=== PATIENT | female | born 1975 | race Hispanic/Latino ===

== ENCOUNTER 2020-08-12 13:13 | Outpatient (CLI) | payer BC, SELFPAY ==
--- NOTE | ~2020-08-12 | MMUS_ITS ---
EXAMINATION: MM diagnostic miguel BI w luis, US breast BI limited HISTORY: Palpable lumps in the upper outer quadrants of the breasts. TECHNIQUE: Craniocaudal, mediolateral, and mediolateral oblique 3-D tomosynthesis images of the breas ts were performed and synthetic 2-D images were generated. CAD analysis was submitted and interpreted . High resolution limited by breast ultrasound was performed. COMPARISON: 10/01/2018, 09/19/2018 BREAST PARENCHYMAL COMPOSITION: The breasts are heterogeneously dense, which may obscure small masses . FINDINGS: MAMMOGRAPHIC FINDINGS: Right breast: There are multiple obscured, low density masses in the upper outer quadrant of the bhumi st in the area of palpable concern. The largest identified mass measures 1.8 cm. No suspicious calcif ication or architectural distortion are identified. Left breast: There are multiple obscured, low density masses in the upper outer quadrant of the breas t in the area of palpable concern. The largest identified mass measures 2.4 cm. No suspicious calcifi cation or architectural distortion are identified. ULTRASOUND: Right breast: There are multiple simple cysts in the upper outer quadrant of the breast in the area o f palpable concern. The largest identified cyst measures 1.5 cm in greatest dimension. No suspicious cystic or solid mass is identified. Left breast: There are multiple simple cysts in the upper outer quadrant of the breast in the area of palpable concern. The largest identified cyst measures 2.1 cm. No suspicious cystic or solid mass is identified. IMPRESSION: 1. Multiple bilateral breast cysts accounting for the areas of palpable concern without suspicious ma mmographic or sonographic findings. Further evaluation at this time should be based on clinical asses sment. Continued follow-up physical examination is recommended. 2. Recommend routine screening mammography in one year. BI-RADS Category 2: Benign finding(s). Reviewed, dictated and finalized at location A. GRAPHICAL SURVEYOR IMPRESSION: 1. Multiple bilateral breast cysts accounting for the areas of palpable concern without suspicious mammographic or sonographic findings. Further evaluation at this time should be based on clinical assessment. Continued follow-up physical examination is recommended. 2. Recommend routine screening mammography in one year. BI-RADS Category 2: Benign finding(s).
== END 2020-08-12 13:14 | disposition home or self-care (01) ==
PROVIDERS: PCP Internal Medicine; Visit Provider Advanced Practice Midwife
DX: N63.10 Unspecified lump in the right breast, unspecified quadrant (principal)
CPT/HCPCS: 76642; 77062; 77066; G0279

== ENCOUNTER 2020-12-24 08:11 | Outpatient (CLI) | payer BC, SELFPAY ==
--- NOTE | ~2020-12-24 | US_ITS ---
US abdomen limited INDICATION: Abnormal levels of serum enzymes PROCEDURE: Realtime right upper abdominal ultrasound. COMPARISON: No prior studies for comparison. FINDINGS: The pancreas is normal without focal mass or pancreatic ductal dilation. There is fatty in filtration of the liver. There is normal directional flow in the portal vein. The gallbladder is normal without stones, gallbladder wall thickening or pericholecystic fluid. Comm on bile duct measures 4 mm. No sonographic Lake's sign. IMPRESSION: 1: Fatty infiltration of the liver. Reviewed, dictated and finalized at location A.
== END 2020-12-24 08:12 | disposition home or self-care (01) ==
LOC: ANHIMG 08:13
PROVIDERS: PCP Internal Medicine; Visit Provider Clinical Nurse Specialist
DX: R74.8 Abnormal levels of other serum enzymes (principal); K76.0 Fatty (change of) liver, not elsewhere classified
CPT/HCPCS: 76705

== ENCOUNTER 2021-01-18 14:01 | Outpatient (CLI) | payer BC, OTHER, SELFPAY ==
[2021-01-18 14:26] LABS: Basophils Percent Auto 0.4 % (0.2-1.2); Eosinophils Absolute Auto 0.1 K/mm3 (0-0.3); Eosinophils Percent Auto 1.5 % (0-4.4); Hematocrit 39.9 % (37.0-47.0); Hemoglobin 12.7 g/dL (12.0-15.0); Immature Granulocyte Absolute 0.03 K/mm3 (0.00-0.031); Immature Granulocyte Percent A 0.4 % (0-0.5); Lymphocytes Absolute Auto 2.35 K/mm3 (0.9-3.2); Lymphocytes Percent Auto 30.2 % (18.3-44.2); Mean Corpuscular HGB Conc 31.8 g/dl (32-36); Mean Corpuscular Hemoglobin 29.3 pg (26-34); Mean Corpuscular Volume 91.9 fl (80-100); Mean Platelet Volume 7.8 fl (7.4-10.4); Monocytes Absolute Auto 0.5 K/mm3 (0.1-0.6); Monocytes Percent Auto 6.9 % (2.6-8.5); Neutrophils Absolute Auto 4.7 K/mm3 (1.3-6.7); Neutrophils Percent Auto 60.6 % (45.5-73.1); Platelet Count Result 311 k/mm3 (150-375); Red Blood Count 4.34 M/mm3 (4.2-5.4); Red Cell Distribution Width 12.7 % (11.5-14.5); White Blood Count 7.8 K/mm3 (4.5-10.0)
[2021-01-18 16:31] LABS: Iron 68 ug/dL (37-170)
[2021-01-18 16:36] LABS: Alanine Aminotransferase 14 U/L (4-35); Albumin Level 4.5 g/dL (3.5-5.1); Alkaline Phosphatase 55 U/L (38-126); Anion Gap 11 mmol/L (8-16); Aspartate Amino Transferase 22 U/L (14-36); Bilirubin,Total 0.4 mg/dL (0.2-1.3); Blood Urea Nitrogen 9 mg/dL (7-17); Calcium 9.6 mg/dL (8.4-10.2); Carbon Dioxide 25 mmol/L (22-30); Chloride 103 mmol/L (98-107); Estimated Glomerular Filt Rate > 60; Glucose 89 mg/dL (65-105); Potassium 4.1 mmol/L (3.4-5.0); Sodium 139 mmol/L (137-145)
[2021-01-18 16:44] LABS: Percent Iron Saturation 19 % (20-50)
[2021-01-21 18:01] LABS: Soluble Transferrin Receptor 1.27 mg/L (0.76-1.76)
== END 2021-01-18 14:02 | disposition home or self-care (01) ==
PROVIDERS: PCP Internal Medicine; Visit Provider Internal Medicine Hematology & Oncology
DX: D50.0 Iron deficiency anemia secondary to blood loss (chronic) (principal)
CPT/HCPCS: 36415; 80053; 82607; 82728; 83540; 83550; 84238; 85025

== ENCOUNTER 2021-04-04 00:48 | Day surgery (SDC) | payer BC, SELFPAY ==
[2021-03-25 14:32] VITALS: BMI 32.3
[2021-04-04 06:18] VITALS: BMI 30.2
[2021-04-04 06:25] VITALS: BP 119/72; PULSE 87; RESP 18; TEMP 36.6; O2SAT 100
[2021-04-04] MEDS: LACTATED RINGERS 1,000 ML 150 ML IV CONT (06:31)
--- NOTE | 2021-04-04 06:44 | P.PNAN_ITS ---
Anes - Initial Pre Proc Eval Procedure: Operation Date: 04/04/21 07:30 Proposed Procedures p Esophagogastroduodenoscopy & Colonoscopy - Gerson Monge MD Date/Time: 04/04/21 06:44 Surgeon: Gerson Monge MD Pre Op Diagnosis: blood in stool, GERD Patient Data Age: 45 Gender: F Height: 1.52 m Weight: 70.2 kg Last Vital Signs Temp 36.6 C 04/04/21 06:25 Pulse 87 04/04/21 06:25 Resp 18 04/04/21 06:25 BP 119/72 04/04/21 06:25 Pulse Ox 100 04/04/21 06:25 Allergies Allergy/AdvReac Type Severity Reaction Status Date / Time No Known Allergies Allergy Verified 04/04/21 06:17 Home Medications Medication Instructions Recorded Confirmed Type cyanocobalamin (vitamin B-12) 5,000 mcg SUBLINGUAL DAILY 08/02/20 04/04/21 History [Vitamin B-12] ferrous sulfate [iron] 325 mg PO DAILY 08/02/20 04/04/21 History yrnkgmsebycl-Wh-mvjp-minerals 1 tablet PO DAILY 08/02/20 04/04/21 History [Multiple Vitamin, Womens] valacyclovir 2,000 mg PO Q12H PRN 08/02/20 04/04/21 History cholecalciferol (vitamin D3) 1,250 1,250 mcg PO WEEKLY #8 tablet 12/15/20 04/04/21 Rx mcg (50,000 unit) tablet Patient hx anesthesia problems: none Family hx anesthesia problems: none Results Review: All pre-operative results and documents have been reviewed as part of the pre-operative evaluation. [facility] Past Medical History Medical History Blood in stool GERD (gastroesophageal reflux disease) Herniated disc Herpes Microcytic anemia Surgical History Surgical History (Updated 04/04/21 @ 06:45 by Luis Fernando Nance MD) Delivery by section x3 S/P cervical spinal fusion Family History Family History Mother Diabetes mellitus Social History Social History Smoking status: Never smoker Tobacco type: cigarettes Alcohol intake: never Alcohol use details: very rarely Substance use: never Substance use type: does not use Living arrangements: with family Gender identity (if verbalized by the patient): Female Spiritual care concerns: No Anes - Eval Final PreProcedure Day of Procedure 04/04/21 06:44 Patient weight: obese Heart: regular rate and rhythm Lungs: clear to auscultation Airway: Mallampati scale class II Neurological: alert and oriented Last oral intake: >/= 8 hours ASA classification: II Emergent: no Anesthetic plan: proceed Anesthesia type and monitoring: general GIVS and standard monitoring Results Review: All pre-operative results and documents have been reviewed as part of the pre-operative evaluation. Informed Consent: The patient's anesthetic plan and its attendant risks and benefits were discussed with the patient/family/POA. Questions were solicited and answers provided to the satisfaction of the patient/family/POA.
--- NOTE | 2021-04-04 07:26 | PM.HPGS ---
History of Present Illness History of Present Illness Consent: Risks, benefits, and alternatives have been discussed and questions answered. Patient agrees to proceed with procedure. Chief complaint: blood in stool, GERD Narrative: Ginny Santana is a 45 year old female with intermittent blood in stools and also gerd Review of Systems Constitutional: Constitutional: Denies headache(s) and Denies weakness Eyes: Eyes: Denies blurry vision ENT: Reports Normal hearing present, Denies headache(s) and Denies neck pain Cardiovascular: Cardiovascular: Denies chest pain and Denies dyspnea Respiratory: Respiratory: Denies dyspnea Gastrointestinal: Gastrointestinal: Reports no additional gastrointestinal complaints Genitourinary: Genitourinary: Denies dysuria Musculoskeletal: Musculoskeletal: Denies neck pain Integumentary/Breasts: Skin/Breast: Denies dry skin Neurologic: Reports Normal hearing present, Denies headache(s) and Denies weakness Psychiatric: Psychiatric: Denies anxiety Endocrine: Endocrine: Denies change in body appearance Hematologic/Lymphatic: Hematologic/Lymphatic: Denies easy bleeding Allergic/Immunologic: Allergic/Immunologic: Denies urticaria PMFSH Past Medical History Medical History Blood in stool GERD (gastroesophageal reflux disease) Herniated disc Herpes Microcytic anemia Surgical History Surgical History (Updated 04/04/21 @ 06:45 by Luis Fernando Nance MD) Delivery by section x3 S/P cervical spinal fusion Family History Family History Mother Diabetes mellitus Social History Social History Smoking status: Never smoker Tobacco type: cigarettes Alcohol intake: never Alcohol use details: very rarely Substance use: never Substance use type: does not use Living arrangements: with family Gender identity (if verbalized by the patient): Female Spiritual care concerns: No Meds Home Medications and Allergies Home Medications Medication Instructions Recorded Confirmed Type cyanocobalamin (vitamin B-12) 5,000 mcg SUBLINGUAL DAILY 08/02/20 04/04/21 History [Vitamin B-12] ferrous sulfate [iron] 325 mg PO DAILY 08/02/20 04/04/21 History bmwwyklnzaao-An-mntp-minerals 1 tablet PO DAILY 08/02/20 04/04/21 History [Multiple Vitamin, Womens] valacyclovir 2,000 mg PO Q12H PRN 08/02/20 04/04/21 History cholecalciferol (vitamin D3) 1,250 1,250 mcg PO WEEKLY #8 tablet 12/15/20 04/04/21 Rx mcg (50,000 unit) tablet Allergies Allergy/AdvReac Type Severity Reaction Status Date / Time No Known Allergies Allergy Verified 04/04/21 06:17 Vital Signs Vital Signs - 24 hr 04/04/21 06:25 Temperature 98 F Pulse Rate 87 Respiratory Rate 18 Blood Pressure 119/72 Pulse Oximetry 100 Exam Const: General: comfortable and no acute distress HENMT: General nose exam: Normal nares present Eyes: General: appearance normal, both eyes and all related structures Neck: Neck: no JVD Resp: Auscultation: clear to auscultation bilaterally Cardio: Rate: regular rate Rhythm: regular rhythm GI: Inspection: non-distended GI Palp: Yes Soft to palpation Skin: General skin exam: normal color Neuro: General: gait normal Speech: normal speech Extrem: General: normal to inspection Psych: Mental Status: mental status grossly normal Assessment and Plan Assessment and plan (1) GERD (gastroesophageal reflux disease): Code(s): K21.9 - Gastro-esophageal reflux disease without esophagitis Status: Acute Assessment and Plan: egd (2) Blood in stool: Code(s): K92.1 - Melena Status: Acute Assessment and Plan: colonoscopy
--- NOTE | 2021-04-04 07:40 | SUR.OPER ---
EGD ended at 734. Colonoscopy started at 740.
[2021-04-04 07:55] VITALS: BP 97/68; PULSE 61; RESP 13; O2SAT 100
[2021-04-04 08:05] VITALS: BP 121/79; PULSE 71; RESP 16; O2SAT 100
[2021-04-04 08:15] VITALS: BP 106/63; PULSE 73; RESP 15; O2SAT 100
== END 2021-04-04 08:28 | disposition home or self-care (01) ==
PROVIDERS: PCP Internal Medicine; Visit Provider Internal Medicine Gastroenterology
PROC: 0DJ08ZZ Inspection of Upper Intestinal Tract, Via Natural or Artificial Opening Endoscopic (ICD-10-PCS; CPT 43235; principal; 2021-04-04 07:30)
DX: K92.1 Melena (principal); K64.8 Other hemorrhoids; K64.4 Residual hemorrhoidal skin tags; D50.0 Iron deficiency anemia secondary to blood loss (chronic); K21.9 Gastro-esophageal reflux disease without esophagitis; K29.60 Other gastritis without bleeding; D12.5 Benign neoplasm of sigmoid colon; D50.9 Iron deficiency anemia, unspecified; E66.9 Obesity, unspecified; Z68.30 Body mass index [BMI] 30.0-30.9, adult
CPT/HCPCS: 45380; 43239; 88305; 88342; J2704; J7120

== ENCOUNTER 2021-08-19 08:14 | Outpatient (CLI) | payer BC, SELFPAY ==
[2021-08-19 08:42] LABS: Basophils Percent Auto 0.4 % (0.2-1.2); Eosinophils Absolute Auto 0.1 K/mm3 (0-0.3); Eosinophils Percent Auto 1.6 % (0-4.4); Hematocrit 40.5 % (37.0-47.0); Hemoglobin 12.9 g/dL (12.0-15.0); Immature Granulocyte Absolute 0.05 K/mm3 (0.00-0.031); Immature Granulocyte Percent A 0.7 % (0-0.5); Lymphocytes Absolute Auto 2.29 K/mm3 (0.9-3.2); Lymphocytes Percent Auto 32.3 % (18.3-44.2); Mean Corpuscular HGB Conc 31.9 g/dl (32-36); Mean Corpuscular Hemoglobin 29.5 pg (26-34); Mean Corpuscular Volume 92.7 fl (80-100); Mean Platelet Volume 8.2 fl (7.4-10.4); Monocytes Absolute Auto 0.5 K/mm3 (0.1-0.6); Monocytes Percent Auto 7.6 % (2.6-8.5); Neutrophils Absolute Auto 4.1 K/mm3 (1.3-6.7); Neutrophils Percent Auto 57.4 % (45.5-73.1); Platelet Count Result 340 k/mm3 (150-375); Red Blood Count 4.37 M/mm3 (4.2-5.4); Red Cell Distribution Width 13.5 % (11.5-14.5); White Blood Count 7.1 K/mm3 (4.5-10.0)
[2021-08-19 08:53] LABS: Anion Gap 8 mmol/L (8-16); Blood Urea Nitrogen 11 mg/dL (7-17); Calcium 9.2 mg/dL (8.4-10.2); Carbon Dioxide 28 mmol/L (22-30); Chloride 102 mmol/L (98-107); Estimated Glomerular Filt Rate > 60; Glucose 114 mg/dL (65-110); Potassium 4.3 mmol/L (3.4-5.0); Sodium 138 mmol/L (137-145)
[2021-08-19 09:22] LABS: Iron 52 ug/dL (37-170)
[2021-08-19 09:32] LABS: Percent Iron Saturation 12 % (20-50)
[2021-08-19 09:58] LABS: Ferritin 7.42 ng/mL (6.24-137)
[2021-08-19 10:00] LABS: Folic Acid 13.2 ng/mL (2.76->20)
== END 2021-08-19 08:15 | disposition home or self-care (01) ==
PROVIDERS: PCP Internal Medicine; Visit Provider Internal Medicine Hematology & Oncology
DX: D50.0 Iron deficiency anemia secondary to blood loss (chronic) (principal)
CPT/HCPCS: 36415; 80048; 82607; 82728; 82746; 83540; 83550; 85025

== ENCOUNTER 2021-12-22 11:56 | Outpatient (CLI) | payer BC, SELFPAY ==
[2021-12-22 12:20] LABS: Basophils Percent Auto 0.3 % (0.2-1.2); Eosinophils Absolute Auto 0.1 K/mm3 (0-0.3); Eosinophils Percent Auto 1.6 % (0-4.4); Immature Granulocyte Absolute 0.03 K/mm3 (0.00-0.031); Immature Granulocyte Percent A 0.4 % (0-0.5); Lymphocytes Percent Auto 35.9 % (18.3-44.2); Mean Corpuscular HGB Conc 29.7 g/dl (32-36); Mean Corpuscular Hemoglobin 24.4 pg (26-34); Mean Corpuscular Volume 82.2 fl (80-100); Mean Platelet Volume 8.5 fl (7.4-10.4); Monocytes Absolute Auto 0.6 K/mm3 (0.1-0.6); Monocytes Percent Auto 9.2 % (2.6-8.5); Neutrophils Absolute Auto 3.7 K/mm3 (1.3-6.7); Neutrophils Percent Auto 52.6 % (45.5-73.1); Platelet Count Result 388 k/mm3 (150-375); Red Cell Distribution Width 16.8 % (11.5-14.5)
[2021-12-22 12:39] LABS: Anion Gap 6 mmol/L (8-16); Blood Urea Nitrogen 12 mg/dL (7-17); Calcium 8.6 mg/dL (8.4-10.2); Carbon Dioxide 25 mmol/L (22-30); Chloride 108 mmol/L (98-107); Estimated Glomerular Filt Rate > 60; Glucose 94 mg/dL (65-110); Sodium 139 mmol/L (137-145)
[2021-12-22 13:45] LABS: Folic Acid 13.4 ng/mL (2.76->20)
[2021-12-22 14:15] LABS: Ferritin 4.96 ng/mL (6.24-137)
== END 2021-12-22 11:57 | disposition home or self-care (01) ==
LOC: ANHLAB 11:58
PROVIDERS: PCP Internal Medicine; Visit Provider Internal Medicine Hematology & Oncology
DX: D50.0 Iron deficiency anemia secondary to blood loss (chronic) (principal)
CPT/HCPCS: 36415; 80048; 82607; 82728; 82746; 85025

== ENCOUNTER 2022-04-26 18:46 | Outpatient (NON) | payer BC, SELFPAY ==
[2022-04-26 19:25] LABS: Add Urine Microscopic? YES; Appearance Urine Cloudy (Clear); Bacteria Urine Trace /hpf; Bilirubin Urine Negative (Negative); Blood Urine 1+ (Negative); Color Urine Yellow (Yellow); Glucose Urine UA Negative (Negative); Ketones Urine Trace mg/dL (Negative); Leukocyte Esterase Ur Trace LEU/UL (Negative); Mucus Urine Rare /lpf; Nitrate Urine Negative (Negative); Protein Urine Negative (Negative); RBC Urine 0-2 /hpf (0-2); Specific Grav Ur 1.015 (1.001-1.035); Squamous Epithelial Cell Urine Few /hpf (Few); Urobilinogen Urine Negative mg/dL (<2.0)
== END 2022-04-26 18:47 | disposition home or self-care (01) ==
PROVIDERS: PCP Internal Medicine; Visit Provider Nurse Practitioner
DX: R30.0 Dysuria (principal)
CPT/HCPCS: 81001

== ENCOUNTER 2022-04-27 12:22 | Outpatient (CLI) | payer BC, SELFPAY ==
[2022-04-27 20:03] LABS: Basophils Percent Auto 0.6 % (0.2-1.2); Eosinophils Absolute Auto 0.1 K/mm3 (0-0.3); Eosinophils Percent Auto 2.1 % (0-4.4); Hematocrit 37.1 % (37.0-47.0); Hemoglobin 11.3 g/dL (12.0-15.0); Immature Granulocyte Absolute 0.02 K/mm3 (0.00-0.031); Immature Granulocyte Percent A 0.3 % (0-0.5); Lymphocytes Absolute Auto 2.01 K/mm3 (0.9-3.2); Lymphocytes Percent Auto 30.8 % (18.3-44.2); Mean Corpuscular HGB Conc 30.5 g/dl (32-36); Mean Corpuscular Hemoglobin 23.7 pg (26-34); Mean Corpuscular Volume 77.9 fl (80-100); Mean Platelet Volume 8.9 fl (7.4-10.4); Monocytes Absolute Auto 0.7 K/mm3 (0.1-0.6); Neutrophils Absolute Auto 3.7 K/mm3 (1.3-6.7); Neutrophils Percent Auto 56.2 % (45.5-73.1); Platelet Count Result 440 k/mm3 (150-375); Red Blood Count 4.76 M/mm3 (4.2-5.4); Red Cell Distribution Width 17.1 % (11.5-14.5); White Blood Count 6.5 K/mm3 (4.5-10.0)
[2022-04-27 20:45] LABS: Alanine Aminotransferase 15 U/L (6-35); Albumin Level 4.7 g/dL (3.5-5.1); Alkaline Phosphatase 49 U/L (38-126); Anion Gap 15 mmol/L (8-16); Aspartate Amino Transferase 24 U/L (14-36); Bilirubin,Total 0.2 mg/dL (0.2-1.3); Blood Urea Nitrogen 15 mg/dL (7-17); Calcium 9.5 mg/dL (8.4-10.2); Carbon Dioxide 25 mmol/L (22-30); Chloride 103 mmol/L (98-107); Estimated Glomerular Filt Rate > 60; Glucose 120 mg/dL (65-110); Sodium 143 mmol/L (137-145)
== END 2022-04-27 12:23 | disposition home or self-care (01) ==
LOC: ANHGOSHLAB 12:25
PROVIDERS: PCP Internal Medicine; Visit Provider Nurse Practitioner
DX: R42 Dizziness and giddiness (principal)
CPT/HCPCS: 36415; 80053; 84443; 85025

== ENCOUNTER 2024-07-22 12:09 | Outpatient (CLI) | payer OTHER, BC, SELFPAY ==
[2024-07-22 12:55] LABS: Basophils Percent Auto 0.3 % (0.2-1.2); Eosinophils Absolute Auto 0.2 K/mm3 (0-0.3); Eosinophils Percent Auto 3.1 % (0-4.4); Hematocrit 38.5 % (37.0-47.0); Hemoglobin 12.3 g/dL (12.0-15.0); Immature Granulocyte Absolute 0.03 K/mm3 (0.00-0.031); Immature Granulocyte Percent A 0.4 % (0-0.5); Lymphocytes Percent Auto 26.8 % (18.3-44.2); Mean Corpuscular HGB Conc 31.9 g/dl (32-36); Mean Corpuscular Hemoglobin 29.5 pg (26-34); Mean Corpuscular Volume 92.3 fl (80-100); Mean Platelet Volume 8.7 fl (7.4-10.4); Monocytes Absolute Auto 0.6 K/mm3 (0.1-0.6); Monocytes Percent Auto 8.3 % (2.6-8.5); Neutrophils Absolute Auto 4.3 K/mm3 (1.3-6.7); Neutrophils Percent Auto 61.1 % (45.5-73.1); Platelet Count Result 292 k/mm3 (150-375); Red Blood Count 4.17 M/mm3 (4.2-5.4); Red Cell Distribution Width 12.5 % (11.5-14.5); White Blood Count 7.1 K/mm3 (4.5-10.0)
[2024-07-22 13:12] LABS: Alanine Aminotransferase 8 U/L (6-35); Albumin Level 4.2 g/dL (3.5-5.1); Alkaline Phosphatase 43 U/L (38-126); Anion Gap 6 mmol/L (4-12); Aspartate Amino Transferase 17 U/L (14-36); Bilirubin,Total 0.4 mg/dL (0.2-1.3); Blood Urea Nitrogen 12 mg/dL (7-17); Calcium 8.7 mg/dL (8.4-10.2); Carbon Dioxide 27 mmol/L (22-30); Chloride 104 mmol/L (98-107); Cholesterol 185 mg/dL (0-200); Estimated Glomerular Filt Rate > 60; Glucose 94 mg/dL (65-110); HDL Direct 64 mg/dL; Potassium 4.3 mmol/L (3.4-5.0); Sodium 137 mmol/L (137-145); Triglycerides 71 mg/dL (<150)
[2024-07-22 13:23] LABS: LDL Cholesterol Direct 95 mg/dL
[2024-07-22 13:45] LABS: Thyroid Stimulating Hormone 0.727 uIU/mL (0.465-4.680)
== END 2024-07-22 12:10 | disposition home or self-care (01) ==
LOC: ANHLAB 12:14
PROVIDERS: PCP Internal Medicine; Visit Provider Nurse Practitioner
DX: D64.9 Anemia, unspecified (principal); E55.9 Vitamin D deficiency, unspecified; K76.0 Fatty (change of) liver, not elsewhere classified
CPT/HCPCS: 36415; 80053; 80061; 82306; 84443; 85025

== ENCOUNTER 2025-06-07 19:36 | Emergency (ER) | payer BC, SELFPAY ==
--- NOTE | ~2025-06-07 | CT_ITS ---
CT abdomen pelvis w con Clinical History: abd pain, nausea, hematuria . Comparison: None Technique: Axial images lung bases to symphysis pubis 100 mL Omnipaque 350 Coronal, sagittal reformats CT images acquired with automatic exposure control for dose reduction DLP: 497 mGy-cm Findings: Lung bases: Clear. Visualized heart and pericardium: Unremarkable. Liver: Enlarged. Steatosis. Gallbladder: Unremarkable. Spleen: Unremarkable. Pancreas: Unremarkable. Adrenal glands: Unremarkable. Kidneys: Right kidney- No hydronephrosis. No renal stones. Left kidney- No hydronephrosis. No renal stones. Tiny probable cyst. Distal esophagus/stomach: Small hiatal hernia. Small bowel loops: Normal caliber and wall thickness. Air-fluid levels. Colon: Apparent distal wall thickening but under distended. Normal RLQ appendix. Nodes: No enlarged nodes. Peritoneum: No ascites. No free air. Urinary bladder: Unremarkable. Uterus: Unremarkable. Adnexa: No masses. Bones: No acute bony abnormality. Soft tissues: Small umbilical hernia with fat. Aorta: No aneurysm or dissection. IVC: Unremarkable. Main portal vein/SMV/splenic vein: Patent. IMPRESSION: 1. Mild enterocolitis possible. 2. Otherwise no acute abnormality. Reviewed, dictated and finalized at location [facility]
[2025-06-07 19:38] VITALS: BP 123/76; PULSE 99; RESP 16; TEMP 37.1; O2SAT 100
--- OUTSIDE RECORDS SUMMARY | 2025-06-07 19:39 | XMS_ITS | Clinical Summary ---
Author Organization [facility] Address [address] [place] [address] Phone Care Team Providers Care Blueprinter Name Role Phone Provider, Unknown Primary Care Provider Unavaila ble Social History Tobacco Use Types Packs/Day Years Used Date Smoking Tobacco: Never Assessed Comments Unknown Sex and Gender Information Value Date Recorded Sex Assigned at Not on file Legal Sex Female 10:14 PM CDT Gender Identity Not on file Sexual Orientation Not on file Plan of Treatment Not on file Care Teams Blueprinter Relationship Specialty Start Date End Date Provider, Unknown UNKNOWN PCP - General 12/25/16
--- OUTSIDE RECORDS SUMMARY | 2025-06-07 19:39 | XMS_ITS | Clinical Summary ---
Author Organization [facility] Address [address] [place] [address] [place] [address] Care Team Providers Care Director Safety Name Role Phone Rebekah Lindsay [facility] Primary Care Provide r Allergies No known active allergies Medications cholecalciferol 1,250 mcg (50,000 unit) Capsule 1 Active traMADoL (ULTRAM) 50 mg tablet tramadol 50 mg tablet take 1 tablet by oral route every 6 hours as needed Active valACYclovir (VALTREX) 500 mg tablet valacyclovir 500 mg tablet Active cyanocobalamin (VITAMIN B-12) 100 mcg tablet Take 100 mcg by mouth daily. Active ferrous sulfate 325 mg (65 mg iron) tablet Take 325 mg by mouth daily. Active sertraline (ZOLOFT) 25 mg tablet Take 25 mg by mouth daily. 2 Active doxepin (SINEquan) 10 mg capsule TAKE 1 CAPSULE BY MOUTH EVERY NIGHT AT BEDTIME 2 Active Active Problems Problem Noted Date Diagnosed Date Iron deficiency anemia 01/18/2021 Family History Medical History Relation Name Comments Kidney Disease Brother 1 Prostate Cancer Father Diabetes Mother Cervical Cancer Sister 1 Anemia Sister 2 Relation Name Status Comments Brother 1 Brother 2 Alive Brother 3 Alive Brother 4 Alive Brother 5 Alive Daughter 1 Alive Daughter 2 Alive Father Alive Mother Sister 1 Alive Sister 2 Alive Sister 3 Alive Son Alive Social History Tobacco Use Types Packs/Day Years Used Date Smoking Tobacco: Never Smokeless Tobacco: Never Alcohol Use Standard Drinks/Week Comments Not Currently 0 (1 standard drink = 0.6 oz pur e alcohol) Comments Unknown Sex and Gender Information Value Date Recorded Sex Assigned at Not on file Legal Sex Female 1:15 PM CDT Gender Identity Not on file Sexual Orientation Not on file Last Filed Vital Signs Vital Sign Reading Time Taken Comments Blood Pressure 118/76 08/25/2021 10:36 AM [employer]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 Pulse 75 08/25/2021 10:36 AM [employer]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 Temperature 36.5 C (97.7 F) 08/25/2021 10:36 AM [employer]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 Respiratory Rate - - Oxygen Saturation 98% 08/25/2021 10:36 AM CA[employer]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 Inhaled Oxygen Concentration - - Weight 71.2 kg (157 lb) 08/25/2021 10:36 AM CA[employer]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 Height 152.4 cm (5') 08/25/2021 10:36 AM CA[employer]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 Body Mass Index 30.66 08/25/2021 10:36 AM CA[employer]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 Plan of Treatment Health Maintenance Due Date Last Done Comments DTAP/TDAP/TD VACCINES (1 - Tdap) 10/27/1995 HEPATITIS B VACCINES (1 of 3 - 19+ 3-dose series) 10/08 HPV/Cotest (21-29) 1997 CERVICAL CANCER SCREENING 2006 HPV/Cotest (30-65) 2006 PAP SMEAR 2006 BREAST CANCER SCREENING 2016 COLORECTAL SCREENING 2021 Colorectal Cancer Screening 2021 FIT-DNA Q 3 years 2021 FIT/FOBT Q 1 year 2021 Flex Sig/CT Colonography Q 5 years 2021 INFLUENZA VACCINE (#1) 2025 Insurance [employer] ACCESS CHOICE Care Teams Director Safety Relationship Specialty Start Date End Date Senci, Rebekah Karen, [employer] [address] [place] [address] PCP - General Clinical Nurse Specialist 01/18/21
--- OUTSIDE RECORDS SUMMARY | 2025-06-07 19:39 | XMS_ITS | Clinical Summary ---
Author Organization [facility] Address [address] [place] [address] Care Team Providers Care User Support Analyst Name Role Phone Unavailable Primary Care Provider Unavailabl e Source Comments [facility],non-owned Affiliates and Associated Physician Practices is amultiple site organization consisting of ambulatory clinics and hospital sitesin [place], [place], [place] and [place]. This disclosure is being madepursuant to the Care Everywhere program and may not contain all information available regarding this patient. Last updated 18.[facility] [employer] Social History Tobacco Use Types Packs/Day Years Used Date Smoking Tobacco: Never Assessed Comments Unknown Sex and Gender Information Value Date Recorded Sex Assigned at Not on file Legal Sex Female 8:55 AM CDT Gender Identity Not on file Sexual Orientation Not on file Plan of Treatment Health Maintenance Due Date Last Done Comments COLOGUARD (AGES 45-75) - COL ON CA SCREENING 1976 COLON MONITORING 1976 COLONOSCOPY - COLON CA SCREENING 1976 CT COLONOGRAPHY - COLON CA SCREENING 1976 Colorectal Cancer Screening 1976 FIT - COLON CA SCREENING 1976 FLEX SIG - COLON CA SCREENING 1976 LIPID TESTING 1976 MAMMOGRAM 1976 HIV SCREENING 10/27/1991 HEPATITIS C SCREENING 10/22/1994 DTAP/TDAP/TD VACCINES (1 - Tdap) 10/27/1995 HEPATITIS B VACCINE (1 of 3 - 19+ 3-dose series) 10/27/1995 PAP SMEAR 1997 Cervical Cancer Screening 2006 PAP with HPV 2006 DEPRESSION SCREENING 07/09/2024 COVID-19 VACCINE ( - 2024-2 6 season) 2025 INFLUENZA VACCINE (#1) 2025 ZOSTER VACCINE (1 of 2) 2026 HIB VACCINE Aged Out No longer eligi ble based on patient's age to complete this topic HPV VACCINE Aged Out No longer eligi ble based on patient's age to complete this topic MENINGOCOCCAL (Group B) VACC INE SHARED DECISION-MAKING Aged Out No longer eligibl e based on patient's age to complete this topic MENINGOCOCCAL GROUPS A/C/Y/W VACCINE Aged Out No longer eligible b ased on patient's age to complete this topic PNEUMOCOCCAL VACCINE Aged Out No long er eligible based on patient's age to complete this topic Insurance ANTHEM
--- OUTSIDE RECORDS SUMMARY | 2025-06-07 19:39 | XMS_ITS | Data Portability ---
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 Patient will come back in a year unless there are new symptoms. [email or web address] Not available 12/26/2022 14:13:23 Plan of Treatment Reminders Order Date Submit Date Provider Last Modified By Organization Details Last Modified Time Details Appointments None recorded . Lab urinalys is, dipstick 2022 023 [email or web address] [place], [address], [place], [address], 15:39:51 urinalys is, dipstick 2022 023 [email or web address] [address], [address], [place], [address], 3 12:25:01 hbcab (hepatit is B core Ab) igm, serum 2022 023 [facility] (Lab), [address], [place], [address], 3 19:33:56 HBsAg (hepatit is B surface Ag), serum 2022 023 [facility] (Lab), [address], [place], [address], 3 19:33:52 hepatiti s C virus Ab, serum 2022 023 [facility] (Lab), [address], [place], [address], 3 19:33:55 unlisted lab - HIV 1/2 antigen/ antibody , reflex confirma tion 2022 023 [facility] (Lab), [address], [place], [address], 3 19:33:52 RPR (rapid plasma reagin), serum 2022 023 [facility] (Lab), [address], [place], [address], 3 19:33:56 dhea-sul fate, serum 2022 023 [facility] (Lab), [address], [place], [address], 3 19:33:56 hormone panel, serum or plasma 2022 023 [facility] (Lab), [address], [place], [address], 3 19:33:55 progeste karlos, serum 2022 023 [facility] (Lab), [address], [place], [address], 3 19:33:53 prolacti n, serum 2022 023 [facility] (Lab), [address], [place], [address], 3 19:33:54 shbg (sex hormone- binding globulin ), serum 2022 023 [facility] (Lab), [address], [place], [address], 3 19:33:54 TSH, serum or plasma 2022 023 [facility] (Lab), [address], [place], [address], 3 19:33:53 testoste karlos free/ulysses tosteron e total, ratio, serum 2022 023 [facility] (Lab), [address], [place], [address], 3 19:33:57 pregnanc y test, urine [address] [facility], [address], [address], [place], [address], 3 16:01:27 Referral None recorded . Procedures None recorded . Surgeries None recorded . Imaging MAMMO, screenin g, digital, bilatera l 2022 023 [facility], [address], [address], [place], [address], 3 15:51:39 US, pelvis, complete 2022 023 [facility], [address], [address], [place], [address], 3 15:51:39 Medication Orders fluconaz ole 150 mg tablet 2022 023 [id number], [address], [place], [id number], 3 15:50:46 nystatin -triamci nolone 100,000 unit/gra m-0.1 % topical ointment 2022 023 [facility], [address], [place], [id number], 15:50:46 nystatin -triamci nolone 100,000 unit/gra m-0.1 % topical ointment 2022 023 [facility] #63191, [address], [place], [id number], 12:41:09 fluconaz ole 150 mg tablet 2022 023 [facility] #61117, [address], [place], [id number], 12:40:26 fluconaz ole 150 mg tablet 2022 023 [email or web address] [facility] #92616, [address] [place], [id number], 3 14:14:14 nystatin -triamci nolone 100,000 unit/gra m-0.1 % topical ointment 2022 023 [email or web address] [facility] #89212, [address] [place], [id number], 3 14:14:27 Valtrex 500 mg tablet 2021 022 [facility] #[id number], [address] [place], [id number], 2 10:58:25 Patient TargetsNo targets recorded. Patient InstructionsNo instructions recorded. Reason for Referral None Reported. Results Created Date Observation Date Name Description Value Unit Range Abnormal Flag Note LastModifiedBy Organization Detail LastModifiedTime 11/10/19 23 11/09/2022 CT/GC AND TRICH OMONA S VAGIN TIMOTHY (RRNA ), SWAB chlamydia trachomatis, PCR Negati ve negati ve Not Available [facility] (Lab) [address], [place], [address], 11/10/2022 15:32:42 11/10/19 23 11/09/2022 CT/GC AND TRICH OMONA S VAGIN TIMOTHY (RRNA ), SWAB neisseria gonorrhoeae, PCR Negati ve negati ve Not Available [facility] (Lab) [address], [place], [address], 11/10/2022 15:32:42 11/10/19 23 11/09/2022 CT/GC AND TRICH OMONA S VAGIN TIMOTHY (RRNA ), SWAB trichomonas vaginalis ribosomal RNA (rrna) Negati ve negati ve Not Available [facility] (Lab) [address], [place], [address], 11/10/2022 15:32:42 11/10/19 23 11/09/2022 VAGIN ITIS/ VAGIN OSIS, DNA PROBE reji sp. detection, direct probe Negati ve negati ve Not Available [facility] (Lab) [address], [place], [address], 11/10/2022 15:32:43 11/10/19 23 11/09/2022 VAGIN ITIS/ VAGIN OSIS, DNA PROBE gardnerella vag. detection, direct probe Positi ve negati ve abnormal Not Available [facility] (Lab) [address], [place], [address], 11/10/2022 15:32:43 11/10/19 23 11/09/2022 VAGIN ITIS/ VAGIN OSIS, DNA PROBE trichomonas vag. detection, direct probe Negati ve negati ve Not Available [facility] (Lab) [address] [place], [address], 11/10/2022 15:32:43 12/27/19 23 12/26/2022 IMAGE GUIDE D PAP AND HPV REGAR DLESS image guided Pap, HPV regardless of Pap result SEE RESULT S BELOW CASE REPOR T: Cytol ogy Gynec ologi jennie Repor t Case: [id number] Autho jayant sol Provi parag: Parris Fam, ALLI Ramirez cted: 12/26 1759 Order ing Locat ion: [place] [facility] Recei kinjal: 12/27 0619 First Scree n: Manuela govea, Ceci ed, CT Rescr een: Strgeorge mosher, Jerry am, CT Speci men: Scree kalia Pap - Image d, Cervi x STATE MENT OF ADEQU ACY: Satis facto ry for evalu ation Trans forma tion zone compo nent absen t The absen ce of an endoc ervic al compo nent was confi rmed by an addit ional catherine ner. FINAL DIAGN OSIS: Negat serina for Intra epith elial Bere hay or Jason macedo (NIL) . Elect esvin villa solo d by Sammy mosher, Jerry lam, CT on 2022 at 10:09 AM ----- ----- ----- ----- ----- ----- ----- ----- ----- ----- ----- ----- ----- ----- ----- ----- ----- ---- HPV RESUL TS: HPV mRNA E6/E7 : No HPV mRNA Detec veronique NOTE: This high risk HPV mRNA assay detec ts fourt een high- risk HPV types (16, 18, 31, 33, 35, 39, 45, 51, 52, 56, 58, 59, 66, 68) witho ut diffe renti ation . COMME NT: This speci men was revie wed by a Cytot echno logis t and/o r Patho logis t (as indic ated in this repor t) after evalu ation using the Thinp rep Imagi ng Syste m. CLINI JENNIE INFOR MATIO N: Menst rual Statu s: LMP (if appli cable ): Clini jennie Histo ry/Pr eviou s Pap: Type of Neopl kailey (if appli cable ): Signi fican t Clini jennie Findi ngs: Other Histo ry: Hormo aaliyah (if appli cable ): PAP EDUCA ERICKA L NOTE: The Pap Test is a scree kalia test with an inher ent false negat serina rate. Liqui d-bas ed sampl ing may decre ase, but will not elimi mary, false negat serina resul ts. A negat serina resul t does not precl ude the prese nce and/o r devel opmen t of disea se, since the prese nce of abnor mal cells in the sampl e depen ds on the locat ion of the lesio n and sampl ing techn ique. Viktoria nued regul ar scree kalia is the best metho d of cance r preve ntion . If repor veronique cytol ogic findi ng do not corre late with physi jennie and/o r histo rical findi ngs, furth er inves tigat ion is recom emmanuel d, as clini joao warra nted. Not Available [facility] (Lab) [address], [place], [address], 12/29/2022 11:13:14 12/27/19 23 12/26/2022 HEPAT ITIS B SURFA CE ANTIG EN hepatitis B surface antigen Non-re active non-re active This assay was perfo rmed using [employer] ratio n reage nts and test kits. Value s obtai shawanda with other assay metho ds or kits canno t be used inter contreras eably . Not Available [facility] (Lab) [address], [place], [address], 01/04/2023 19:33:52 12/27/1912/26/2022 HIV 1/2 ANTIG EN/AN TIBOD Y, REFLE X CONFI RMATI ON HIV antigen/anti body Nonrea ctive nonrea ctive HIV-1 antig en and HIV-1 /HIV- 2 antib odies were not detec veronique. No labor atory evide nce of HIV infec tion. Not Available [facility] (Lab) [address], [place], [address], 01/04/2023 19:33:52 12/27/19 23 12/26/2022 TSH, REFLE X FREE T4 TSH 0.97 uIU/m L 0.30-5 .33 Not Available [facility] (Lab) [address], [place], [address], 01/04/2023 19:33:53 12/27/19 23 12/26/2022 PROGE STERO NE progesterone 0.19 NG/mL This assay was perfo rmed using [employer] ratio n reage nts and test kits. Value s obtai shawanda with other assay metho ds or kits canno t be used inter [facility] . Femal e Proge stero ne Range s: Folli cular phase 0.06- 0.89 ng/mL Ovula tion phase 0.12- 12.00 ng/mL Lutea l phase 1.83- 23.90 ng/mL Postm enopa usal< 0.05- 0.13 ng/mL Healt hy Pregn ant Women 1st Trime ster1 1.0-4 4.30 2nd Trime ster2 5.40- 83.30 3rd Trime ster5 8.70- 214.0 0 Not Available [facility] (Lab) [address], [place], [address], 01/04/2023 19:33:53 12/27/19 23 12/26/2022 PROLA CTIN prolactin, total 8.50 NG/mL 4.79-2 3.30 This assay was perfo rmed using [employer] ratio n reage nts and test kits. Value s obtai shawanda with other assay metho ds or kits canno t be used inter [facility] . Not Available [facility] (Lab) [address], [place], [address], 01/04/2023 19:33:54 12/27/19 23 12/26/2022 HUMAN SEX HORMO NE EULALIO NG LENU SHAWNA sex hormone binding globulin 44.3 nmole s/L 16.8-1 25.2 Not Available [facility] (Lab) [address] [place], [address], 01/04/2023 19:33:54 12/27/19 23 12/26/2022 FSH, LH, ESTRA DIOL estradiol 11.4 pg/mL This assay was perfo rmed using [employer] reage nts and test kits. Value s obtai shawanda with other assay metho ds or kits canno t be used inter [facility] . Femal e Estra diol Range s: Folli cular phase 12.4- 233 pg/mL Ovula tion phase 41.0- 398 pg/mL Lutea l phase 22.3- 341 pg/mL Postm enopa usal< 5-138 pg/mL Healt hy Pregn ant Women 1st Trime ster1 54-32 43 pg/mL 2nd Trime ster1 561-2 1280 pg/mL 3rd Trime ster8 525-> 56979 pg/mL Not Available [facility] (Lab) [address], [place], [address], 01/04/2023 19:33:55 12/27/19 23 12/26/2022 FSH, LH, ESTRA DIOL FSH 38.1 mIU/m L This assay was perfo rmed using [employer] n reage nts and test kits. Value s obtai shawanda with other assay metho ds or kits canno t be used inter [facility] . Femal es Folli cular : 3.5-1 2.5 mIU/m L Ovula tion: 4.7-2 1.5 mIU/m L Lutea l: 1.7-7 .7 mIU/m L Postm enopa use: 25.8- 134.8 mIU/m L Not Available [facility] (Lab) [address] [place], [address], 01/04/2023 19:33:55 12/27/1912/26/2022 FSH, LH, ESTRA DIOL LH 23.2 mIU/m L This assay was perfo rmed using [employer] reage nts and test kits. Value s obtai shawanda with other assay metho ds or kits canno t be used inter contreras eably . Femal es Mid-F ollic ular: 2.4-1 2.6 mIU/m L Mid-C ycle: 14.0- 95.6 mIU/m L Mid-L uteal : 1.0-1 1.4 mIU/m L Postm enopa use: 7.7-5 8.5 mIU/m L Not Available [facility] (Lab) [address], [place], [address], 01/04/2023 19:33:55 12/27/19 23 12/26/2022 HEPAT ITIS C ANTIB CECILIO SCREE N, REFLE X TO CONFI RMATI ON hepatitis C antibody Non-re active non-re active Antib odies to HCV Not Detec veronique, does not exclu de the possi bilit y of expos ure to HCV. Not Available [facility] (Lab) [address], [place], [address], 01/04/2023 19:33:55 12/27/19 23 12/26/2022 DHEA SULFA TE DHEA-sulfate 198 ug/dL Femal e Range s Age(y ) Range (ug/d L) 10-15 34-28 0 15-20 65-36 8 20-25 148-4 07 25-35 99-34 0 35-45 61-33 7 45-55 35-25 6 55-65 19-20 5 65-75 9-246 > 75 12-15 4 Not Available [facility] (Lab) [address], [place], [address], 01/04/2023 19:33:55 12/27/19 23 12/26/2022 RPR SCREE N/REF CRYSTAL TITER /FTA RPR screen Nonrea ctive nonrea ctive Not Available [facility] (Lab) [address], [place], [address], 01/04/2023 19:33:56 12/27/19 23 12/26/2022 HEPAT ITIS B CORE, IGM hepatitis B core IgM antibody Negati ve negati ve Not Available [facility] (Lab) [address], [place], [address], 01/04/2023 19:33:56 12/27/19 23 12/26/2022 TESTO STERO NE, FREE( DIALY SIS) AND TOTAL (LC/M S/MS) testosterone , total 18 NG/dL 2-45 For addit ional infor monica gill e refer to http: //mirian hay.rehan stdia gnost ics.c om/fa q/Tot alTprachi merejean claude Noble [facility] (This link is being provi ded for infor matadonis nal/ educa ericka l purpo ses only. ) This test was devel oped and its obinna tical perfo rmanc e reyna cteri stics have been deter mined by [employer]. It has not been clear ed or appro kinjal by the FDA. This assay has been valid ated pursu ant to the CLIA regul ation s and is used for clini jennie purpo ses. Not Available [facility] (Lab) [address], [place], [address], 01/04/2023 19:33:57 12/27/19 23 12/26/2022 TESTO STERO NE, FREE( DIALY SIS) AND TOTAL (LC/M S/MS) testosterone , free 2.0 pg/mL 0.1-6. 4 This test was devel oped and its obinna tical perfo rmanc e reyna cteri stics have been deter mined by [employer]. It has not been clear ed or appro kinjal by the FDA. This assay has been valid ated pursu ant to the CLIA regul ation s and is used for clini jennie purpo ses. Perfo rming Organ izati on Infor matadonis n: Site ID: [id number] Name: [employer]-[facility] [place] Addre ss: [id number] [place] [address] Direc tor: Shawn sequeira M.D. Not Available [facility] (Lab) [address], [place], [address], 01/04/2023 19:33:57 12/27/19 23 12/26/2022 pregn romario test, urine HCG negati ve Not Available [place] [address], [place], [address], 12/26/2022 16:01:20 05/08/20 23 05/08/2023 VAGIN ITIS/ VAGIN OSIS, DNA PROBE reji sp. detection, direct probe Negati ve negati ve Not Available [facility] (Lab) [address], [place], [address], 05/10/2023 07:27:28 05/08/20 23 05/08/2023 VAGIN ITIS/ VAGIN OSIS, DNA PROBE gardnerella vag. detection, direct probe Positi ve negati ve abnormal Not Available [facility] (Lab) [address], [place], [address], 05/10/2023 07:27:28 05/08/2005/08/2023 VAGIN ITIS/ VAGIN OSIS, DNA PROBE trichomonas vag. detection, direct probe Negati ve negati ve Not Available [facility] (Lab) [address], [place], [address], 05/10/2023 07:27:28 05/08/20 23 05/08/2023 CT/GC AND TRICH OMONA S VAGIN TIMOTHY (RRNA ), SWAB chlamydia trachomatis, PCR Negati ve negati ve Not Available [facility] (Lab) [address], [place], [address], 05/10/2023 07:27:29 05/08/20 23 05/08/2023 CT/GC AND TRICH OMONA S VAGIN TIMOTHY (RRNA ), SWAB neisseria gonorrhoeae, PCR Negati ve negati ve Not Available [facility] (Lab) [address], [place], [address], 05/10/2023 07:27:29 05/08/2005/08/2023 CT/GC AND TRICH OMONA S VAGIN TIMOTHY (RRNA ), SWAB trichomonas vaginalis ribosomal RNA (rrna) Negati ve negati ve Not Available [facility] (Lab) [address], [place], [address], 05/10/2023 07:27:29 05/08/20 23 05/08/2023 CULTU RE: URINE result report SEE RESULT S BELOW Test: Cultu re: Urine Speci men Sourc e: Urine Voide d Speci men Type: Urine Speci men Date: 05/08 3:15 PM Resul t Date: 2022 6:22 AM Resul t Statu s: Final resul t Abnor mal: No Resul ting Lab: [facility] [address] [facility] [address] Tel: CULTU RE ----- ----- ----- --- No growt h in 1 day (dete ction level of 10,00 0 colon ies / ml.) Not Available [facility] (Lab) [address], [place], [address], 05/10/2023 07:27:29 05/08/2005/08/2023 urina lysis , dipst ick Leukocytes NEGATI VE Not Available [place] [address], [place], [address], 05/08/2023 12:24:12 05/08/2005/08/2023 urina lysis , dipst ick Nitrite NEGATI VE Not Available [place] [address], [place], [address], 05/08/2023 12:24:12 05/08/20 23 05/08/2023 urina lysis , dipst ick Protein TRACE Not Available [place] [address], [place], [address], 05/08/2023 12:24:12 05/08/2005/08/2023 urina lysis , dipst ick pH 6 Not Available [place] [address], [place], [address], 05/08/2023 12:24:12 05/08/20 23 05/08/2023 urina lysis , dipst ick Blood trace Not Available [place] [address], [place], [address], 05/08/2023 12:24:12 05/08/20 23 05/08/2023 urina lysis , dipst ick Specific [place] 1.015 Not Available [facility] [address], [place], [address], 05/08/2023 12:24:12 05/08/2005/08/2023 urina lysis , dipst ick Glucose NORMAL Not Available [place] [address], [place], [address], 05/08/2023 12:24:12 05/23/20 23 05/23/2023 BACTE RIAL VAGIN OSIS PANEL RT-PC R, ONESW AB gardnerella vaginalis PCR Negati ve Swab- 1 Vag Cerv Not Available [facility] (Lab) [address], [place], [address], 06/05/2023 15:23:23 05/23/20 23 05/23/2023 BACTE RIAL VAGIN OSIS PANEL RT-PC R, ONESW AB atopobium vaginae PCR Negati ve Swab- 1 Vag Cerv Not Available [facility] (Lab) [address], [place], [address], 06/05/2023 15:23:23 05/23/20 23 05/23/2023 BACTE RIAL VAGIN OSIS PANEL RT-PC R, ONESW AB bacterial vaginosis associated bacteria 2 (bvab2) Negati ve Swab- 1 Vag Cerv Not Available [facility] (Lab) [address] [place], [address], 06/05/2023 15:23:23 05/23/20 23 05/23/2023 BACTE RIAL VAGIN OSIS PANEL RT-PC R, ONESW AB megasphaera species (type 1 and type 2) PCR Negati ve (Type1 ,Type2 ) Swab- 1 Vag Cerv Type1 :Nega tive Type2 :Nega tive. Not Available [facility] (Lab) [address] [place], [address], 06/05/2023 15:23:23 05/23/20 23 05/23/2023 BACTE RIAL VAGIN OSIS PANEL RT-PC R, ONESW AB lactobacillu s (bvpanel) PCR See Commen t Swab- 1 Vag Cerv L.cri spatu s: Negat serina L.blaine senii : Negat serina L.gas seri : Negat serina L.ine rs : Posit serina. Not Available [facility] (Lab) [address] [place], [address], 06/05/2023 15:23:23 05/23/20 23 05/23/2023 UROGE NITAL MYCOP LASMA /UREA PLASM A PANEL RT-PC R, ONESW AB mycoplasma genitalium by RT-PCR Negati ve Swab- 1 Vag Cerv Not Available [facility] (Lab) [address] [place], [address], 06/05/2023 15:23:23 05/23/20 23 05/23/2023 UROGE NITAL MYCOP LASMA /UREA PLASM A PANEL RT-PC R, ONESW AB mycoplasma hominis by RT-PCR Negati ve Swab- 1 Vag Cerv Not Available [facility] (Lab) [address] [place], [address], 06/05/2023 15:23:23 05/23/20 23 05/23/2023 UROGE NITAL MYCOP LASMA /UREA PLASM A PANEL RT-PC R, ONESW AB ureaplasma urealyticum by RT-PCR Negati ve Swab- 1 Vag Cerv Not Available [facility] (Lab) [address], [place], [address], 06/05/2023 15:23:23 05/23/20 23 05/23/2023 LUZ DA VAGIN ITIS PANEL RT-PC R, ONESW AB reji albicans PCR Negati ve Swab- 1 Vag Cerv Not Available [facility] (Lab) [address], [place], [address], 06/05/2023 15:23:24 05/23/20 23 05/23/2023 LUZ DA VAGIN ITIS PANEL RT-PC R, ONESW AB reji tropicalis PCR Negati ve Swab- 1 Vag Cerv Not Available [facility] (Lab) [address], [place], [address], 06/05/2023 15:23:24 05/23/20 23 05/23/2023 LUZ DA VAGIN ITIS PANEL RT-PC R, ONESW AB reji parapsilosis PCR Negati ve Swab- 1 Vag Cerv Not Available [facility] (Lab) [address] [place], [address], 06/05/2023 15:23:24 05/23/20 23 05/23/2023 LUZ DA VAGIN ITIS PANEL RT-PC R, ONESW AB reji glabrata PCR Negati ve Swab- 1 Vag Cerv Not Available [facility] (Lab) [address] [place], [address], 06/05/2023 15:23:24 05/23/20 23 05/23/2023 LUZ DA VAGIN ITIS PANEL RT-PC R, ONESW AB reji krusei by RT-PCR Negati ve Swab- 1 Vag Cerv Not Available [facility] ([facility]) [address], [place], [address], 06/05/2023 15:23:24 05/23/20 23 05/23/2023 MOBIL UNCUS MULIE RIS/C GWENDOLYN WARREN, RT-PC R, ONE SWAB mobiluncus mulieris and mobiluncus curtisii by RT-PCR Negati ve Swab- 1 Vag Cerv Not Available [facility] (Lab) [address], [place], [address], 06/05/2023 15:23:25 05/23/20 23 05/23/2023 LUZ DA CECILIO I BY RT-PC R reji krusei by RT-PCR CANCEL LED Dupli norm Not Available [facility] (Lab) [address], [place], [address], 06/05/2023 15:23:25 05/23/20 23 05/23/2023 urina lysis , dipst ick Leukocytes neg Not Available [facility] [address], [place], [address], 05/23/2023 15:39:13 05/23/20 23 05/23/2023 urina lysis , dipst ick Nitrite neg Not Available [place] [address], [place], [address], 05/23/2023 15:39:13 05/23/20 23 05/23/2023 urina lysis , dipst ick Urobilinogen neg Not Available Rashida l[facility] [address], [place], [address], 05/23/2023 15:39:13 05/23/20 23 05/23/2023 urina lysis , dipst ick Protein trace Not Available [place] [address], [place], [address], 05/23/2023 15:39:13 05/23/20 23 05/23/2023 urina lysis , dipst ick pH 6 Not Available [place] [address], [place], [address], 05/23/2023 15:39:13 05/23/20 23 05/23/2023 urina lysis , dipst ick Specific [place] 1.010 Not Available [facility] annie [address], [place], [address], 05/23/2023 15:39:13 05/23/20 23 05/23/2023 urina lysis , dipst ick Ketone neg Not Available [facility] [address], [place], [address], 05/23/2023 15:39:13 05/23/20 23 05/23/2023 urina lysis , dipst ick Bilirubin neg Not Available [facility] [address], [place], [address], 05/23/2023 15:39:13 05/23/20 23 05/23/2023 urina lysis , dipst ick Glucose neg Not Available [facility] [address], [place], [address], 05/23/2023 15:39:13 05/23/20 23 05/23/2023 urina lysis , dipst ick Appearance clear Not Available [facility] [address], [place], [address], 05/23/2023 15:39:13 05/23/20 23 05/23/2023 urina lysis , dipst ick Color yellow Not Available [facility] [address], [place], [address], 05/23/2023 15:39:13 10/07/19 22 10/06/2021 , rochelle casillas No observ ation record ed. [email or web address] [facility] [address], [place], [address], 10/06/2021 12:49:15 10/07/19 22 10/06/2021 [place], trans vagin al No observ ation record ed. [email or web address] [address], [place], [address], 10/06/2021 12:49:35 10/07/19 22 10/06/2021 US, pelvi s No observ ation record ed. [email or web address] Peggy [address] [place] [address] [address], [place], [address], 10/07/2021 17:17:06 Result Notes None recorded. Problems Name Problem SNOMED Code Status Onset Date Resolution Date Notes Provider Name and Address Organization Details Recorded Time Pregnanc y test negative 706050989 Completed 201510/12/2021 Encounter for test, result negative; Practice ID: [address] [facility] 2 21:25:34 Body mass index 30+ - obesity 708305293 Completed 201510/12/2021 Body mass index (BMI) 32.0-32.9 , adult;Rec orded Elsewhere : No Locati on: [facility] So urce: EHR Chron ic: N Practic e ID: [id number] Bill able Time: 11:00:00 AM Claudia Carroll [facility] 2 21:25:34 Screenin g for malignan t neoplasm of cervix Completed 201510/12/2021 Screening for malignant neoplasms of the cervix;Re corded Elsewhere : No Locati on: [facility] So urce: EHR Chron ic: N Practic e ID: 0001 Bill able Time: 11:00:00 AM Claudia Carroll [facility] 2 21:25:34 Hypertro phy of uterus 823620577 Completed 201510/12/2021 Hypertrop hy of uterus;Pr actice ID: 0001 Claudiaabhi Carroll [facility] 2 21:25:34 Acute vaginiti s 56090426 Completed 201610/12/2021 Acute vaginitis ;Practice ID: 0001 Claudia phipps [facility] 2 21:25:34 Syphilis test finding [id number] Completed 201610/12/2021 Encntr screen for infection s w sexl mode of transmiss ;Practice ID: 0001 Claudia phipps [facility] 2 21:25:34 Infectio n screenin g Completed 201610/12/2021 Encounter for screening for oth infec/par astc diseases; Practice ID: 0001 Claudia phipps [facility] 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 21:25:[address] Concept Completed 201810/12/2021 Encntr for routine child health exam w/o abnormal findings; Recorded Elsewhere : No Locati on: [facility] So urce: EHR Chron ic: N Practic e ID: [id number] Bill able Time: 05:00:00 PM Claudia Carroll [facility] 2 21:25:34 Evaluati on finding Completed 201810/12/2021 Oth abn and inconclus serina findings on dx imaging of breast;Re corded Elsewhere : No Locati on: [facility] So urce: EHR Chron ic: N Practic e ID: 0001 Bill able Time: 05:00:00 PM Claudia phipps [facility] 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 2 21:25:34 Problem Notes None recorded. Procedures Surgical History Date Name Laterality Status Provider Name and Address Organization Details Recorded Time 09/07/19 22 Date of Last Pap Smear completed Claudia Carroll [facility] 10/12/2021 21:38:45 08/22/19 21 Date of Last Mammogram completed [facility] 12/26/2022 14:16:43 12/08/19 19 Neck spine disk surgery completed [facility] 06/11/2020 18:50:36 07/09/19 13 Date of Last Colonoscopy completed [facility] 12/26/2022 14:15:29 07/09/19 13 Colonoscopy completed [facility] 06/11/2020 18:51:06 01/01/20 10 section completed [facility] 06/11/2020 18:49:40 01/01/20 10 Tubal Ligation completed [facility] 06/11/2020 18:50:05 07/09/19 08 Tonsillectomy completed [facility] 06/11/2020 18:50:45 11/08/19 07 section completed [facility] 06/11/2020 18:49:47 09/22/19 04 section completed [facility] 06/11/2020 18:49:34 Imaging Results None recorded. Procedure Notes None recorded. Medical Equipment None Reported. Allergies No known drug allergies Medications Name Sig Start Date Stop Date Status Note LastModified by Organization Details LastModified Time amoxicill in 500 mg capsule TAKE 2 CAPSULES BY MOUTH EVERY 12 HOURS FOR 14 DAYS 09/06 completed Not Available Not Available Not Available methocarb genia 500 mg tablet TAKE 1 TABLET BY MOUTH TWICE A DAY 09/06 completed Not Available Not Available Not Available nystatin 100,000 unit/gram topical ointment APPLY TO THE AFFECTED AREA(S) BY TOPICAL ROUTE 2 TIMES PER DAY active Not Available Not Available No t Available fluconazo le 150 mg tablet TAKE 1 TABLET BY MOUTH 1 TIME. REPEAT IN 72 HOURS IF SYMPTOMS PERSIST active Not Available Not Available No t Available valacyclo vir 1 gram tablet TAKE 1/2 TABLET BY MOUTH EVERY 12 HOURS FOR 3 DAYS FOR GENITAL HERPES OR OUTBREAK active Not Available Not Available No t Available clarithro mycin 500 mg tablet TAKE 1 TABLET BY MOUTH EVERY 12 HOURS FOR 14 DAYS 09/06 completed Not Available Not Available Not Available meclizine 12.5 mg tablet TAKE 1 TABLET BY MOUTH THREE TIMES DAILY NEEDED FOR DIZZINES S 12/26 completed Not Available Not Available Not Available metronida zole 500 mg tablet TAKE 1 TABLET BY MOUTH EVERY 12 HOURS FOR 7 DAYS active Not Available Not Available No t Available ciproflox acin 250 mg tablet TAKE 1 TABLET BY MOUTH EVERY 12 HOURS 09/06 completed Not Available Not Available Not Available doxepin 10 mg capsule TAKE 1 CAPSULE BY MOUTH EVERY NIGHT AT BEDTIME 12/26 completed Not Available Not Available Not Available valacyclo vir 500 mg tablet active Not Available Not Available No t Available tramadol 50 mg tablet take 1 tablet by oral route every 6 hours as needed 09/06 completed Prescrib ed Elsewher e: Yes Loca tion: Toni barrera [facility] odify By: sony mosher Encoun ter DateTime : 09/12/19 19 05:00:00 PM Not Available Not Available Not Available triamcino lone acetonide 0.1 % topical cream APPLY ON THE SKIN TWICE DAILY 11/09 completed Not Available Not Available Not Available nystatin- triamcino lone 100,000 unit/gram -0.1 % topical ointment APPLY TO THE AFFECTED AREA(S) BY TOPICAL ROUTE 2 TIMES PER DAY FOR 7 DAYS 2022 active Not Available Not Available Not Avai lable Metrogel Vaginal 0.75 % (37.5 mg/5 gram) insert 1 applicat orful by vaginal route every day at bedtime 09/11 completed Prescrib ed Elsewher e: No Locat ion: Toni barrera [facility] odify By: sony z Encoun ter DateTime : 12/29/19 17 09:22:50 AM Not Available Not Available Not Available triamcino lone acetonide 0.1 % topical ointment APPLY A THIN LAYER TO THE AFFECTED AREA(S) BY TOPICAL ROUTE 2 TIMES PER DAY active Not Available Not Available No t Available sertralin e 25 mg tablet TAKE 1 TABLET BY MOUTH DAILY 11/09 completed Not Available Not Available Not Available omeprazol e 20 mg capsule,d elayed release TAKE 1 CAPSULE BY MOUTH TWICE DAILY FOR 14 DAYS 12/26 completed Not Available Not Available Not Available Vitamin D2 1,250 mcg (50,000 unit) capsule take 1 capsule by oral route every week 09/06 completed Prescrib ed Sima e: No Locat ion: [facility] odify By: rg davis DateTime : 04/21/20 03:55:36 PM Not Available Not Available Not Available sertralin e 50 mg tablet TAKE 1 TABLET BY MOUTH DAILY 12/26 completed Not Available Not Available Not Available nitrofura ntoin monohydra te/macroc rystals 100 mg capsule TAKE 1 CAPSULE BY MOUTH EVERY 12 HOURS FOR 5 DAYS 11/09 completed Not Available Not Available Not Available cholecalc iferol (vitamin D3) 1,250 mcg (50,000 unit) capsule TAKE ONE CAPSULE BY MOUTH ONCE WEEKLY active Not Available Not Available No t Available Vitals Date Recorded Body height Body mass index (BMI) Body weight Systolic And Diastolic Provider Name and Address Organization Details Last Updated DateTime 10/13/2021 148.59 cm 32.5 kg/m2 29204.59 g 126/70 mm[Hg] Claudia Carroll [facility] 10/13/2021 10:43:26 Date Recorded Systolic And Diastolic Provider Name and Address Organization Details Last Updated DateTime 11/09/2022 124/73 mm[Hg] Maria Ines Sanderson [facility] 11/09/2022 15:21:03 Date Recorded Body height Body mass index (BMI) Body weight Systolic And Diastolic Provider Name and Address Organization Details Last Updated DateTime 12/26/2022 148.59 cm 28.6 kg/m2 18982.34 g 145/92 mm[Hg] Linda Whitehead [facility] 12/26/2022 14:14:04 Date Recorded Body height Body mass index (BMI) Body weight Systolic And Diastolic Provider Name and Address Organization Details Last Updated DateTime 05/08/2023 148.59 cm 28.4 kg/m2 59162.75 g 123/79 mm[Hg] Manuela Hilario [facility] 05/08/2023 12:18:20 Date Recorded Body height Body mass index (BMI) Body weight Systolic And Diastolic Provider Name and Address Organization Details Last Updated DateTime 05/23/2023 148.59 cm 29 kg/m2 98498.52 g 120/74 mm[Hg] Claudia Farusto [facility] 05/23/2023 15:32:38 Social History Question Answer Notes LastModified by Organizat ion Details LastModified Time Tobacco Smoking Status Former Smoker Linda phipps, [facility] 06/11/2020 18:48:47 Are You Blind Or Do You Have Difficulty Seeing? No [email or web address] Information n ot available 12/26/2022 In The 14 Days Before Symptom Onset, Have You Had Close Contact With A Laboratory-confirm ed COVID-19 While That Case Was Ill? No [email or web address] Information n ot available 12/26/2022 In The 14 Days Before Symptom Onset, Have You Had Close Contact With A Person Who Is Under Investigation For COVID-19 While That Person Was Ill? No [email or web address] Information not available 12/26/2022 Have You Been To An Area Known To Be High Risk For COVID-19? No Information not available 12/26/2022 Are You Deaf Or Do You Have Serious Difficulty Hearing? No [email or web address] Information not available 12/26/2022 What Type Of Diet Are You Following? REGULAR [email or web address] Information n ot available 12/26/2022 What Was The Date Of Your Most Recent Tobacco Screening? 12/26/2022 [email or web address] Information not available 12/26/2022 Have You Ever Been Counseled For Unhealthy Alcohol Use? No [email or web address] Information not available 12/26/2022 Do You Use Your Seat Belt Or Car Seat Routinely? Yes [email or web address] Information not available 12/26/2022 Do You Have Smoke And Carbon Monoxide Detectors In Your Home? Yes [email or web address] Information not available 12/26/2022 How Much Tobacco Do You Smoke? No [email or web address] Information not available 06/11/2020 Do You Use Sunscreen Routinely? Yes [email or web address] Information not available 12/26/2022 Do You Have Difficulty Walking Or Climbing Stairs? No [email or web address] Information not available 12/26/2022 Sex: Unknown Functional Status Question Answer Note LastModified by Organizat ion Details LastModified Time Do you use any illicit or recreational drugs? No [email or web address] Information not available 12/26/2022 What is your level of alcohol consumption? Occasional Information not available 06/11/2020 Do you or have you ever used smokeless tobacco? Never used smokeless tobacco [email or web address] Information not available 06/11/2020 Are you able to walk independently without assistance or assistive devices? YESWOREST [email or web address] Information not available 12/26/2022 Are you able to care for yourself independently? Yes [email or web address] Information not available 12/26/2022 Do you have difficulty dressing, bathing, grooming, or toileting? No [email or web address] Information not available 12/26/2022 Do you or have you ever used e-cigarettes or vape? Never used electronic cigarettes [email or web address] Information not available 06/11/2020 What is your exercise level? Occasional [email or web address] Information not available 06/11/2020 Mental Status Question Answer Note LastModified by Organization D etails LastModified Time Do you feel stressed (tense, restless, nervous, or anxious, or unable to sleep at night)? [id number] [email or web address] Information not available 12/26/2022 Family History Relationship Description Onset Age of this Age Resolved Age Notes LastModified by Organization Details LastModified Time Mother Diabetes mellitus [email or web address] Not available 06/11 18:48:37 Sister Anemia [email or web address] Not available 06/11/2020 18:48:42 Medical History Condition Response Other Y Blood Transfusion N Dermatologic Disorders N Gestational Diabetes N Anxiety Disorder Y Autoimmune disease N Arthritis N Polyps N Infertility N Acid Reflux (GERD) N Cancer N Varicosities N Stroke N Neurologic/Epilepsy Y Fibromyalgia N Headaches N Kidney Disease N Heart Problems N Kidney or Bladder Problems N Eating Disorder N Art (IVF or FET) N Hepatitis/Liver Disease N No Past Medical History N Urinary Tract Infection N Asthma N Trauma/Violence N Thrombophilias N Allergies (Food, seasonal, environmental ) N Breast Cancer N Drug/Latex Allergies/Reactions N Lung Disease N Defects or Inherited Disease N Breast Problem Y Hematologic disorders N Anesthesia Complications N History of STI Y Deep Vein Thrombosis N Polycystic ovary syndrome N History of abnormal pap N Endometriosis N High Cholesterol N Thyroid Problems N GI Problems N Anemia N Psychiatric Illness N Ovarian Cancer N Diabetes N Pulmonary (TB, Asthma) N Eczema N Abuse/Domestic Violence N Depression/ depression Y Heart Disease N Pre-Eclampsia N Hypertension N Osteoporosis N Gynecological History Statement/Question Response Flow Light Date of Last Mammogram 08/22/2020 Date of LMP 12/13/2022 Was last menstrual period normal Y STIs/STDs Y Current Control Method Tubal Ligat ion Are cycles usually normal Y Date of Last Colonoscopy 07/09/2012 Sexually Active? Y Menses Monthly Y Date of Last Pap Smear 09/06/2021 Sexual Problems? N LMP Definite Obstetrics History GPAL:G 3 P 3 0 0 3 Type Value Full Term 3 Living 3 Total 3 Past Encounters Encounter ID Performer Location Encounter Start Date Encounter Closed Date Diagnosis/Indication Diagnosis SNOMED-CT Code Diagnosis ICD10 Code Diagnosis IMO Codes Diagnosis Note [id number] Dilcia Jacques CNM [facility] [address] [address] 06/11/2020 12:00:58 06/11/2020 14:03:12 Gynecologic examination 39401967 Z01.419 [id number] Cris Laguerre [facility] [address] [address] 09/06/2021 09:24:12 09/06/2021 10:45:06 Pain in pelvis 33545516 R10.2 Agreeable to an updated US and f/u for results. Patient is to contact office or go to nearest ED/Urgent care if fever >/= 100.1, pain, excessive bleeding, unusual drainage or swelling in area of concern; or experienci ng worsening sx's or new onset of concerning sx's. Understand ing verbalized . All questions answered to patient satisfacti on. Genital he rpes simplex 10455018 A60.9 Trial of daily suppressio n therapy x 3 mosWill f/u as needed. [id number] Danial Jiang MD [place] [address],[place] [address] 10/06/2021 12:05:23 10/06/2021 12:44:03 Pain in pelvis 63343002 R10.2 [id number] REBECCA [facility] [address],[place] [address] 10/13/2021 10:28:16 10/13/2021 12:21:28 Pain in pelvis 07778524 R10.2 TVUS reviewed.Q uestions answeredDi scussed trial of BC to see if this will help her menstrual dysmenorrh ea & ovulation pain that she has been experienci ng.She prefers to monitor at this time.Does not feel this is effecting her quality of life.Will call if any significan t changes in her status. 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 All staff wore face coverings during this encounter, as well as provided additional cleaning and sanitizing of all surfaces, including countertop s, pens, chairs, door handles, light switches, etc, prior to and following the patient s visit. Herpes simplex 47447464 B00.9 Suppressiv e therapy initiated. Doing well on this therapy.Wi ll continue.R F sent [id number] REBECCA Hdz [place] [address],[facility] [place] [address] 11/09/2022 15:07:56 11/09/2022 15:39:36 Vaginitis 64237450 N76.0 suspect yeastvagin itis panel sentSTI endocervic al testing sentvulvar care guidelines discussed, d/c use of fragrant soapsRx sent, R/B/A discussedd ue for WWE, encouraged to scheduled Time spent in visit is a total of 18 mins with at least 50% of visit consisting of counseling and review of plan of care. Venereal d isease screening 824383000 Z11.3 [id number] REBECCA Hdz [place] [address] [address] 12/26/2022 13:57:41 12/26/2022 16:06:35 Venereal disease screening 434198225 Z11.3 Abnormal u terine bleeding 8641396035 9100 N93.9 Sexually t ransmitted infectious disease 1665206 A64 Screening for malignant neoplasm of breast 395284798 Z12.39 Urinary symptoms 5244891 08 R39.9 Gynecologi c examination 41164903 Z01.419 Suggested Calcium with Vitamin D 1200-1500m g daily. Patient advised to get an annual flu shot in the fall and she could obtain at [facility] or [facility] clinic. Also to obtain TDap vaccinatio n if you have not had one in the last 10 years. Recommend yearly mammograms . Encouraged monthly self breast exams. Encourage safe sexual practices, to use condoms and limit partners if not already in a monogamous relationsh ip. Engage in daily exercise of low impact aerobic exercise 45-60 minutes 4-5 times weekly. Avoid tobacco and illicit drugs as well as using moderation with alcohol intake less than 1-2 8 oz beverages daily. This lifestyle behavior pattern will lead to less health conditions and longer life span. If BMI greater than 25 weight watchers or dietary consult advised. All questions have been answered. Patient appears to understand informatio n, but if you have any questions please call or respond to this email. [facility], pelvic u/s for further evaluation of IMBpap updatedSTI testing added to papBlood STI testing ordereduri ne cx sentvulvar care guidelines discussedm ammogram order givencolon oscopy UTDBP precaution s discussed. Encouraged f/u with [facility] for pelvic u/s and f/u Time spent in visit is a total of 40 mins with at least 50% of visit consisting of counseling and review of plan of care. [id number] REBECCA Hdz [place] [address],[facility] [place] [address] 05/08/2023 11:59:24 05/08/2023 14:08:22 Urinary symptoms 608639440 R39.9 suspect yeastvagin itis/STI panel sentvulvar care guidelines discusseds afe sexual practices discussed and encouraged rx sent, r/b/a reviewedUA wnl, cx sentwill update pt with results when available Time spent in visit is a total of 25 mins with at least 50% of visit consisting of counseling and review of plan of care. Patient is to contact office or go to nearest ED/Urgent care if fever >/= 100.1, pain, excessive bleeding, unusual drainage or swelling in area of concern; or experienci ng worsening sx's or new onset of concerning sx's. Understand ing verbalized . All questions answered to patient satisfacti on. Pruritus of vagina 00305 003 L29.3 Vaginitis 89257337 N76.0 Venereal d isease screening 071326392 Z11.3 [id number] REBECCA Hdz [place] [address],[facility] [place] [address] 05/23/2023 15:23:21 05/23/2023 16:42:08 Urinary symptoms 472526951 R39.9 Vaginitis 02697863 N76.0 UA - normalexte nded vaginitis panel sentvulvar care guidelines discussedr x sent, r/b/a reviewedRT C if symptoms persist past treatment Time spent in visit is a total of 25mins with at least 50% of visit consisting of counseling and review of plan of care. Health Concerns Section Related Observation LastModified by Organization Detai ls LastModified Time None Recorded Concern Status LastModified by Organization Details LastModified Time None Recorded Advance Directives Directive None Recorded Payers Insurance Date Sequence Insurance Name Policy Number Policy Roy Covered Member ID Roy Member ID Guarantor Name 05/22/2023 2 [facility] (MEDICAID HMO) [id number] Ginny Santana [id number] Ginny Santana 06/25/2023 1 [facility] (O) [id number] Abebe Santana [id number] Ginny Santana 05/22/2023 2 [place]: [facility] Ginny Santana [id number] Ginny Santana 07/23/2023 PAYMENT PLAN Ginny Santana Notes Date Note Type Note Provider Name and Address Organization Details Recorded Time 2 text/html ROS as noted in the HPI Here today for TVUS review. REBECCA Acevedo[facility] [address], [place], [address], [facility] 10/13/2021 10:59:46 3 text/html Vaginal/Vulvar ProblemReported by Patient 47yopresents for evaluation of vaginal itching, discharge, and odorclumpy, yellow d/csymptoms started shortly after using a new fragrant soapSA with steady partnerBTL for BCneg pelvic painneg n/v/f REBECCA Hdz [address], [place], [address], [facility] 11/09/2022 15:38:22 3 text/html Annual GYNReported by PatientGenitourinary symptomsFor menstrual cycle, patient reportsbleeding between periods(monthly periods lasting 7 days, moderate flowintermenstrual bleeding x 1 year. light spotting x 1 week mid cycle). For urinary symptoms, patient reportsburning sensation during urinationbut reportsno hematuriaandno incontinence(urinary burning that comes and goes, occurs at random intervals. no current symptoms). For vagina, patient reportsvaginal burning(vaginal d/c, itching, and burning that comes and goes. treated for bv 5/, symptoms resolved but then returned shortly after.). For vulva, patient reportsno genital lesion.Breast symptomsFor breast, patient reportsno breast pain,no breast lump, andno nipple discharge.ContraceptionFo r current contraception, patient reportstubal ligation(new partner within the last year).Endocrine symptomsFor sexual complaints, patient reportsno sexual complaints,no pain during intercourse, andnormal libido. For menopausal symptoms, patient reportsno menopausal symptomsandnormal vaginal lubrication.Psychological symptomsFor psychological symptoms, patient reportsno depression,no anxiety, andno pmdd.Preventative measuresFor preventive measures, patient reportsencourage self breast examination,encourage regular exercise,encourage no tobacco use,encourage regular mammograms starting age 40,needs to schedule mammogram, andup to date on colonoscopy screening. REBECCA Hdz [address], [place], [address], [facility] 12/26/2022 16:01:40 3 text/html 47yopresents for evaluation of urinary frequency, urgency, burning and vaginal itchingvaginal itching, no d/curinary symptoms - started 2-3 days agono new partnersBTL for BCneg pelvic painneg n/v/fneg flank pains REBECCA Hdz [address], [place], [address], [facility] 05/08/2023 14:07:26 3 text/html 47yopresent for evaluation of vulvar itching, burning, irritationtreated for yeast 05/08 - symptoms resolved and then return a few days agoSA with steady male partnerBTL for BCfollowing vulvar care guidelines REBECCA Hdz [address], [place], [address], [facility] 05/23/2023 16:11:11 OBGyn Episode Ob Episode Information Episode Created Date Number of Fetuses Patient Bloodtype Patient rh Status Prepregnancy Weight lbs Domestic Partner Domestic Partner Phone Father Name Medical Billing Instructor Status 06/11/20 20 1 CLOSED Fetus Data First Name Last Name Admitted to NICU Weight (g) Sex Living Outcome Pediatric Complications Fetus ID Race Codes Race Delivery Type 3628.73 6 F Full Term 6466 Repeat Zane Calculation Initial Zane Date Initial Exam Date Initial Exam Provider Initial Ultrasound Date Last Menstrual Period Date Ultra Sound Weeks Gestation 0 Eighteen To Twenty Week Zane Update Ultra Sound Date Fundal Height At Umbil Quickening Date Ultra Sound Latest Weeks Gestation Final Zane Confirmed By Final Zane Confirmed Date Final Zane Date Ultra Sound Latest Days Gestation 0 0 Menstrual History Last Menstrual Date Menses Monthly On Bcp Conception Prior Menses Frequency Hcg Plus Date Menarche Onset Age Delivery Information Delivery Date Delivery Type Labor Anesthesia Weeks Gestation Incision Type Labor Labor Length Hrs Delivered By Post Complications Tubal Sterilization Discharge Date Comments 0 40 Discharge Information Feeding Method Contraceptive Method Maternal HG B and HCT Levels Ob Episode Information Episode Created Date Number of Fetuses Patient Bloodtype Patient rh Status Prepregnancy Weight lbs Domestic Partner Domestic Partner Phone Father Name Medical Billing Instructor Status 06/11/20 20 1 CLOSED Fetus Data First Name Last Name Admitted to NICU Weight (g) Sex Living Outcome Pediatric Complications Fetus ID Race Codes Race Delivery Type 3628.73 6 M Full Term 6467 Repeat Zane Calculation Initial Zane Date Initial Exam Date Initial Exam Provider Initial Ultrasound Date Last Menstrual Period Date Ultra Sound Weeks Gestation 0 Eighteen To Twenty Week Zane Update Ultra Sound Date Fundal Height At Umbil Quickening Date Ultra Sound Latest Weeks Gestation Final Zane Confirmed By Final Zane Confirmed Date Final Zane Date Ultra Sound Latest Days Gestation 0 0 Menstrual History Last Menstrual Date Menses Monthly On Bcp Conception Prior Menses Frequency Hcg Plus Date Menarche Onset Age Delivery Information Delivery Date Delivery Type Labor Anesthesia Weeks Gestation Incision Type Labor Labor Length Hrs Delivered By Post Complications Tubal Sterilization Discharge Date Comments 7 40 Discharge Information Feeding Method Contraceptive Method Maternal HG B and HCT Levels Ob Episode Information Episode Created Date Number of Fetuses Patient Bloodtype Patient rh Status Prepregnancy Weight lbs Domestic Partner Domestic Partner Phone Father Name Medical Billing Instructor Status 06/11/20 20 1 CLOSED Fetus Data First Name Last Name Admitted to NICU Weight (g) Sex Living Outcome Pediatric Complications Fetus ID Race Codes Race Delivery Type 3628.73 6 F Full Term 6465 Primary Zane Calculation Initial Zane Date Initial Exam Date Initial Exam Provider Initial Ultrasound Date Last Menstrual Period Date Ultra Sound Weeks Gestation 0 Eighteen To Twenty Week Zane Update Ultra Sound Date Fundal Height At Umbil Quickening Date Ultra Sound Latest Weeks Gestation Final Zane Confirmed By Final Zane Confirmed Date Final Zane Date Ultra Sound Latest Days Gestation 0 0 Menstrual History Last Menstrual Date Menses Monthly On Bcp Conception Prior Menses Frequency Hcg Plus Date Menarche Onset Age Delivery Information Delivery Date Delivery Type Labor Anesthesia Weeks Gestation Incision Type Labor Labor Length Hrs Delivered By Post Complications Tubal Sterilization Discharge Date Comments 4 40 Discharge Information Feeding Method Contraceptive Method Maternal HG B and HCT Levels
--- OUTSIDE RECORDS SUMMARY | 2025-06-07 19:39 | XMS_ITS | Clinical Summary ---
Author Organization [facility] Address [address] [place] [id number] Care Team Providers Care Balance Wheel Hand Filer Name Role Phone Joceline Zazueta NP Primary Care Provider [phone] Allergies No known active allergies Medications valACYclovir (VALTREX) 500 mg tablet TAKE ONE TABLET BY MOUTH TWICE A DAY FOR 3 DAYS WITH RECURRENT EPISODES 24 0 5 Active Active Problems Problem Noted Date Diagnosed Date Breast pain 10/05/2020 Bilateral breast cysts 10/05/2020 Genital herpes simplex 11/04/2014 Overview (10/12/2016): Genital herpes Surgical History Surgery Date Site/Laterality Comments OTHER SURGICAL HISTORY herniated cervical disc: work comp Medical History Medical History Date Comments Hx Other Medical x 3 Hx Other Medical 2014 herniated cervi elmo disc Family History Medical History Relation Name Comments Other Brother Ashley Renal disease-r eceived diaylsis every 3 days; Other Father Benign prostati c hypertrophy; Diabetes type II Mother Diabetes me llitus type 2; Relation Name Status Comments Brother Ashley Father Mother Social History Tobacco Use Types Packs/Day Years Used Date Smoking Tobacco: Smoker, Current Status Unknown Alcohol Use Standard Drinks/Week Comments No 0 (1 standard drink = 0.6 oz pur e alcohol) Personal Safety Answer Date Recorded Getting School Help Needed Not on file 09/07 Comments Unknown Sex and Gender Information Value Date Recorded Sex Assigned at Not on file 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 [employer] [facility] [employer] Care Teams Balance Wheel Hand Filer Relationship Specialty [place] [id number] [address] PCP - General 11/04/14
[2025-06-07 20:24] VITALS: BP 119/56; PULSE 94; RESP 16; O2SAT 100
[2025-06-07 21:01] LABS: Hematocrit 35.1 % (37.0-47.0); Hemoglobin 11.8 g/dL (12.0-15.0); Immature Granulocyte Percent A 0.5 % (0-0.5); Lymphocytes Absolute Auto 1.50 K/mm3 (0.9-3.2); Mean Corpuscular HGB Conc 33.6 g/dl (32-36); Mean Corpuscular Hemoglobin 29.6 pg (26-34); Mean Corpuscular Volume 88.2 fl (80-100); Nucleated Red Blood Cells Absolute Auto 0.000 K/mm3 (0.0-0.012); Nucleated Red Blood Cells Perc 0.0 % (0.0-0.2); Platelet Count Result 293 k/mm3 (150-375); Red Blood Count 3.98 M/mm3 (4.2-5.4); White Blood Count 15.6 K/mm3 (4.5-10.0)
[2025-06-07 21:03] LABS: BEDSIDEPREGUCG Negative (Negative)
--- NOTE | 2025-06-07 21:07 | ED.ABDPAIN ---
HPI - Abdominal Pain General Chief Complaint: Abdominal Pain Stated Complaint: abd pain, blood in urine Time Seen by Provider: 06/07/25 20:31 Source: patient Mode of arrival: ambulatory Limitations: no limitations History of Present Illness HPI narrative: This is a 49-year-old female that presents to the emergency department for abdominal pain. Ongoing since yesterday. Reports associated nausea, hematuria. Denies fevers, dysuria, vomiting. Related Data Home Medications ?Medication ?Instructions ?Recorded ?Confirmed ?Last Taken ?Type ascorbic acid (vitamin C) 1,000 mg 1 g PO DAILY 05/17/21 08/15/24 Unknown History tablet cholecalciferol (vitamin D3) 50 2,000 unit PO DAILY 09/07/21 08/15/24 Unknown History mcg (2,000 unit) capsule vitamin B complex (B 1 tablet PO DAILY 09/07/21 08/15/24 Unknown History Complex-Vitamin B12 tablet) Allergies Allergy/AdvReac Type Severity Reaction Status Date / Time No Known Allergies Allergy Verified 06/07/25 21:54 Review of Systems Review of Systems: All systems reviewed & are unremarkable except as noted in HPI and below PMFSH Past Medical History Medical History Right knee pain Bilateral knee pain Medial meniscus tear Hoffa disease of right knee Patella-femoral syndrome GERD (gastroesophageal reflux disease) Blood in stool Microcytic anemia Herpes Herniated disc Surgical History Surgical History S/P cervical spinal fusion Delivery by section x3 Family History Family History Mother Diabetes mellitus Social History Social History Social History: caffeine-none Smoking status: Never smoker Alcohol intake: never Alcohol use details: very rarely Substance use: never Substance use type: does not use Living arrangements: with family Occupation/Education: occupation Gender identity (if verbalized by the patient): Female Spiritual care concerns: No Exam Narrative: GENERAL: Well-appearing, well-nourished, and in no acute distress. HEAD: Normocephalic, atraumatic. EYES: EOMI. CHEST: Clear to auscultation. No respiratory distress. No wheezes rales or rhonchi HEART: Regular rate and rhythm. No murmur heard. Normal peripheral pulses. ABDOMEN: Soft, nondistended, normal active bowel sounds. Tender to palpation throughout the abdomen, without guarding EXTREMITIES: Normal range of motion. No edema. SKIN: Warm, dry, no rash. NEURO: No focal deficits. Alert and oriented x3. PSYCH: Normal mood and affect Course Vital Signs Vital signs: Vital Signs Temperature 98.8 F 06/07/25 19:38 Pulse Rate 99 06/07/25 19:38 Respiratory Rate 16 06/07/25 19:38 Blood Pressure 123/76 06/07/25 19:38 Pulse Oximetry 100 06/07/25 19:38 Oxygen Delivery Room Air 06/07/25 19:38 Temperature 98.3 F 06/07/25 22:08 Pulse Rate 90 06/07/25 22:08 Respiratory Rate 14 06/07/25 22:08 Blood Pressure 102/65 06/07/25 22:08 Pulse Oximetry 100 06/07/25 22:08 Oxygen Delivery Room Air 06/07/25 20:24 MDM - Abdominal Pain MDM Narrative Medical decision making narrative: Patient presents the emergency department for abdominal pain, nausea, hematuria. She is afebrile and nontoxic appearing. Her vitals are stable. CBC with leukocytosis to 15.6. Metabolic panel without concerning findings. Lipase is normal. Urine with greater than 100 red blood cells, trace leuk esterase. test negative. CT abdomen and pelvis without acute findings. Patient updated on her workup and agrees with plan of care. She is to follow up with primary provider. She was given warnings to return to the ER Differential Diagnosis Differential diagnosis: Likely calculus of kidney, diverticulitis, gastroenteritis, small bowel obstruction and other (UTI) Lab Data Attestation: I reviewed the patient's lab results. 06/07/25 20:55 06/07/25 20:55 Labs: Lab Results 06/07/25 06/07/25 06/07/25 Range/Units 20:21 20:55 21:00 WBC 15.6 H (4.5-10.0) K/mm3 RBC 3.98 L (4.2-5.4) M/mm3 Hgb 11.8 L (12.0-15.0) g/dL Hct 35.1 L (37.0-47.0) % MCV 88.2 (80-100) fl MCH 29.6 (26-34) pg MCHC 33.6 (32-36) g/dl RDW 13.7 (11.5-14.5) % Plt Count 293 (150-375) k/mm3 MPV 8.2 (7.4-10.4) fl Immature Gran % (Auto) 0.5 (0-0.5) % Neut % (Auto) 84.1 H (45.5-73.1) % Lymph % (Auto) 9.6 L (18.3-44.2) % Grainger % (Auto) 5.4 (2.6-8.5) % Eos % (Auto) 0.3 (0-4.4) % Baso % (Auto) 0.1 L (0.2-1.2) % Lymph # (Auto) 1.50 (0.9-3.2) K/mm3 Grainger # (Auto) 0.8 H (0.1-0.6) K/mm3 Eos # (Auto) 0.1 (0-0.3) K/mm3 Baso # (Auto) 0.0 (0.0-0.1) K/mm3 Abs Immat Gran (auto) 0.08 H (0.00-0.031) K/mm3 Absolute Neuts (auto) 13.1 H (1.3-6.7) K/mm3 Absolute Nucleated RBC 0.000 (0.0-0.012) K/mm3 Nucleated RBC % 0.0 (0.0-0.2) % Sodium 134 L (137-145) mmol/L Potassium 3.6 (3.4-5.0) mmol/L Chloride 104 (98-107) mmol/L Carbon Dioxide 24 (22-30) mmol/L Anion Gap 6 (4-12) mmol/L BUN 11 (7-17) mg/dL Creatinine 0.68 L (0.7-1.0) mg/dL Estim Creat Clear Calc 78 ml/min Estimated GFR > 60 (59 - ) Glucose 114 H (65-110) mg/dL Calcium 9.1 (8.4-10.2) mg/dL Total Bilirubin 0.6 (0.2-1.3) mg/dL AST 20 (14-36) U/L ALT 14 (6-35) U/L Alkaline Phosphatase 73 (38-126) U/L Total Protein 7.7 (6.3-8.2) g/dL Albumin 4.3 (3.5-5.1) g/dL Lipase 49 (23-300) U/L Urine Color Yellow (Yellow) Urine Appearance Cloudy H (Clear) Urine pH 6.5 (5.0-9.0) Ur Specific [place] 1.018 (1.001-1.035) Urine Protein Trace (Negative) mg/dL Urine Glucose (UA) Negative (Negative) mg/dL Urine Ketones 3+ H (Negative) mg/dL Ur Blood (Man) 3+ H (Negative) Urine Nitrate Negative (Negative) Urine Bilirubin Negative (Negative) Urine Urobilinogen 0.2 (<2.0) mg/dL Leukocyte Esterase Rfl Trace H (Negative) FRANCIE/UL Urine RBC >100 H (0-2) /hpf Urine WBC 0-5 (0-3) /hpf Ur Squamous Epith Cells Occasional (Few) /hpf Urine Bacteria None seen /hpf Urine Casts 0-2 POC Urine HCG, Qual Negative (Negative) Imaging Data Radiologist's impression: CT abdomen and pelvis: The kidneys demonstrate normal enhancement without pyelonephritis or hydronephrosis. No evidence for ureteral stones. The bladder is unremarkable. Stomach is predominantly decompressed with minimal gas noted. No evidence for small bowel obstruction. Nonspecific fluid-filled nondilated small bowel loops noted in the pelvis. Mild stool burden. No diverticulitis. No free intraperitoneal fluid or pneumoperitoneum. Normal caliber appendix. Critical Care Time Critical Care Time Critical Care Time: No Discharge Plan Discharge Clinical Impression: Hematuria Qualifiers: Hematuria type: gross Qualified Code(s): R31.0 - Gross hematuria Patient Disposition: Home Condition: Stable Instructions: Antibiotic Form, Hematuria (ED) Additional Instructions: Return to the ER if you experience fever, abdominal pain with nausea and vomiting, you are unable to keep down liquids or solids, or any other symptoms that are concerning to you Small, frequent meals. Tate diet. Remain well hydrated. Ondansetron as needed for nausea. Take oral antibiotic as prescribed Follow up with primary care doctor Patient Language: Mongolian Prescriptions: New ondansetron 4 mg tablet,disintegrating 4 mg PO Q8H PRN (Reason: nausea and vomiting) Qty: 10 0RF cefdinir 300 mg capsule 300 mg PO Q12H 5 Days Qty: 10 0RF No Action ascorbic acid (vitamin C) 1,000 mg tablet 1 g PO DAILY vitamin B complex [B Complex-Vitamin B12] Tablet 1 tablet PO DAILY cholecalciferol (vitamin D3) 50 mcg (2,000 unit) capsule 2,000 unit PO DAILY ferrous sulfate 325 mg (65 mg iron) tablet 325 mg PO DAILY Qty: 30 0RF valacyclovir 1 gram tablet See Rx Instructions .ROUTE .COMPLEX Qty: 3 2RF Dose Instruction: TAKE 2 TABLETS BY MOUTH EVERY 12 HOURS Rx Instructions: one half tab q12 hours for 3 days for genital herpes outbreak Follow-up/Referrals: Edgar Chow DO [Primary Care Provider, Internal Medicine]
[2025-06-07 21:12] LABS: Alanine Aminotransferase 14 U/L (6-35); Albumin Level 4.3 g/dL (3.5-5.1); Alkaline Phosphatase 73 U/L (38-126); Anion Gap 6 mmol/L (4-12); Aspartate Amino Transferase 20 U/L (14-36); Bilirubin,Total 0.6 mg/dL (0.2-1.3); Blood Urea Nitrogen 11 mg/dL (7-17); Calcium 9.1 mg/dL (8.4-10.2); Carbon Dioxide 24 mmol/L (22-30); Chloride 104 mmol/L (98-107); Estimated CRCL calculation 78 ml/min; Estimated Glomerular Filt Rate > 60; Glucose 114 mg/dL (65-110); Lipase 49 U/L (23-300); Potassium 3.6 mmol/L (3.4-5.0); Sodium 134 mmol/L (137-145); Total Protein 7.7 g/dL (6.3-8.2)
[2025-06-07] MEDS: FAMOTIDINE 20 MG/2 ML VIAL IV PUSH (21:19)
[2025-06-07] MEDS: ONDANSETRON INJ 4 MG/2 ML VIAL IV PUSH (21:21)
[2025-06-07] MEDS: MORPHINE SULFATE (*CRX) 4 MG/ML INJ IV PUSH (21:21)
[2025-06-07 21:26] LABS: Add Urine Microscopic? YES; Appearance Urine Cloudy (Clear); Glucose Urine UA Negative (Negative); Leukocyte Esterase Ur Trace LEU/UL (Negative); Nitrate Urine Negative (Negative); Non Pathogenic Casts 0-2; Specific Grav Ur 1.018 (1.001-1.035)
[2025-06-07 22:08] VITALS: BP 102/65; PULSE 90; RESP 14; TEMP 36.8; O2SAT 100
== END 2025-06-08 01:35 | disposition home or self-care (01) ==
PROVIDERS: Emergency Medicine; Emergency Provider Physician Assistant; PCP Internal Medicine
DX: R31.0 Gross hematuria (principal); K21.9 Gastro-esophageal reflux disease without esophagitis
CPT/HCPCS: 36415; 74177; 80053; 81001; 81025; 83690; 85025; 87086; 87186; 96374; 96375; 99284; J2270; J2405; Q9967